=== PATIENT | female | born 1990 | race Caucasian/White ===

== ENCOUNTER 2025-01-26 21:55 | Emergency (ER) | payer BC ==
[~2025-01-26] VITALS: Ht 160 cm; Wt 124.9 kg
--- NOTE | 2025-01-26 22:09 | ELECTROCARDIOGRAPH REPORT ---
[facility] Test Date: 2025-01-26 Test Time: 22:06:43 Pat Name: HARSHAL LEONARDO Department: EMERGENCY ROOM Patient ID: [id number] Room: Gender: F [employer] Sewer: KHOA : 1990 Requested By: CASSANDRA SCHULER Order Number: [id number] Reading MD: Dr. Cassandra Schuler Measurements Intervals [place] Rate: 50 P: 27 NV: 147 QRS: 24 QRSD: 94 T: 1 QT: 432 QTc: 394 Interpretive Statements Sinus bradycardia Electronically Signed On 01-26-2025 23:30:[address] Cassandra Schuler Please click the below link to view image of tracing.
[2025-01-26 22:10] LABS: MEAN PLATELET VOLUME 9.5 FL (7.4-10.4); RED CELL DISTRIBUTION WIDTH 12.9 % (11.5-14.5)
[2025-01-26 22:12] VITALS: TEMP 98.5
[2025-01-26 22:34] LABS: CREATININE 0.77 MG/DL (0.40-0.90); PRO BRAIN NATRIURETIC PEPTIDE 71 PG/ML (0-125); TOTAL CARBON DIOXIDE 28.3 MMOL/L (24-32); eCRCL 86 ML/MIN; eGFR 86 ML/MIN
--- NOTE | 2025-01-26 22:39 | RADIOLOGY REPORT ---
CHEST RADIOGRAPH Indication: CP Technique: Single frontal view of the chest was obtained Comparison: None FINDINGS: Lines and Tubes: None Lungs: Mild pulmonary vascular congestion. No focal consolidation. Pleura: No effusion. No pneumothorax. Cardiomediastinal contours: Unremarkable Bones: No acute osseous abnormality. IMPRESSION: 1. Mild pulmonary vascular congestion. No focal consolidation.
--- NOTE | 2025-01-26 23:08 | Physician Documentation ---
History of Present Illness ~ Chief Complaint: Dizziness Stated Complaint: CHEST PAIN Time Seen by MD: 22:40 OK to notify your PCP?: Yes Source: patient, RN/MD, RN notes reviewed, old records Mode of Arrival: POV Exam Limitations: no limitations HPI 34 year old female seen in bed 03 presents to the emergency department for complaints of dizziness that has been present for three weeks. She states that her dizziness is intermittent but has been worsening for the past two days. Which began after she has a severe panic attack of which she has been taking propranolol for. Additionally she complains of heart pain that she states feels like a tightness in her chest. She state sthat the pain is non radiationg and she describes it as a heavy, tight, and stabbing pain. She has an ecchocardiogram scheduled six days from now. Medication Reconciliation Allergies: Coded Allergies: No Known Allergies (Unverified , 01/26/25) Scheduled Meclizine HCl (Meclizine HCl), 1 TAB PO Q12H Past Medical History Past Medical History: Chronic Back Pain, Anxiety, Bipolar, Depression Past Surgical History: cholecystectomy, orthopedic surgeries, tonsillectomy Smoking Status: Current every day smoker Alcohol Use: Rarely Drug Use: none Review of Systems All Other Systems at this time: Reviewed and Negative ROS As stated above in the HPI, otherwise all systems are reviewed and negative. Physical Exam Vital Signs: RN Vital Signs have been reviewed: Yes, Temperature: 98.5, Source: Oral, Heart Rate: 60, Respiratory Rate: 18, BP: 169/85, Pulse Oximetry: 98, Weight: 124.900 Oxygen Flow Rate: 0 Pulse Oximetry Reflects: adequate oxygenation Physical Exam General: The patient is well developed, well nourished, nontoxic appearing and is in no acute distress. Skin: [place], warm and dry with no rashes. HEENT: Head was normocephalic and atraumatic. Eyes - pupils equal, round, reactive to light and accommodation. Extraocular movements were intact. Conjunctivae were nonicteric. Ears - bilateral tympanic membranes were normal. The mouth and oropharynx were clear with moist mucous membranes. There were no pharyngeal exudates or erythema. Neck: Supple and nontender. There was no jugular venous distention, lymphadenopathy, thyromegaly or masses. Chest: Substernal chest pain. Clear to auscultation bilaterally without wheezes, rales or rhonchi. No accessory muscle use. No dullness to percussion. Heart: Rate regular and rhythmic. S1, S2. No murmurs. Palpation of the chest wall was normal. No rubs or thrills. Abdomen: Soft, nontender and nondistended. Positive bowel sounds. No guarding or rebound. No hepatosplenomegaly or palpable masses. Extremities: No cyanosis, clubbing or edema. The patient moves all extremities. Pulses were equal and symmetric. Neurologic: Nystagmus. Cranial nerves II-XII were intact. Sensation was intact to light touch throughout. Motor strength was 5/5 in all four extremities. Deep tendon reflexes were intact in both upper and lower extremities. Psychologic: The patient was oriented to person, place and time. The patient demonstrated appropriate judgement and insight. Progress Results/Orders Reviewed/noted all lab results: Yes Results/Orders Orders - CASSANDRA DRUMMOND MD Chest,Single View (01/26/25 22:21) Monitor (01/26/25 22:02) Saline Lock (01/26/25 22:02) Oxygen (01/26/25 22:02) Electrocardiogram (01/26/25 22:02) Hs Troponin I W Calculations (01/27/25 01:02) Echocardiogram (01/27/25 00:39) Completed Orders - CASSANDRA DRUMMOND MD Chest,Single View (01/26/25 22:21) Cbc/Diff (01/26/25 22:02) BMP (01/26/25 22:02) PBNP (01/26/25 22:02) Electrocardiogram (01/26/25 22:02) Hs Troponin I W Calculations (01/26/25 22:02) Hs Troponin I W Calculations (01/27/25 00:02) Drug Screen, Urine (01/27/25 00:18) Ethanol (01/26/25 22:03) Lipase (01/26/25 22:03) Liver Panel (01/26/25 22:03) MG (01/26/25 22:03) ESR (01/27/25 00:38) C-Reactive Protein (01/27/25 00:38) Ua W/Microscopic, Cult If Ind (01/27/25 00:46) Vital Signs 7/01/26/25 01/26/25 01/27/25 22:12 23:00 23:09 00:12 Temp 98.5 Pulse 60 60 48 Resp 18 20 16 B/P (MAP) 169/85 141/73 (95) 125/66 (85) Pulse Ox 98 99 98 O2 Flow Rate 0 Laboratory Tests Test 01/26/25 22:03 01/27/25 00:16 01/27/25 00:46 White Blood Count 13.0 H Red Blood Count 4.39 Hemoglobin 13.5 Hematocrit 39.1 Mean Corpuscular Volume 89.0 Mean Corpuscular Hemoglobin 30.7 Mean Corpuscular Hemoglobin Concent 34.5 Red Cell Distribution Width 12.9 Platelet Count 289 Mean Platelet Volume 9.5 Neutrophils (%) (Auto) 59.3 Lymphocytes (%) (Auto) 32.7 Monocytes (%) (Auto) 6.4 Eosinophils (%) (Auto) 1.3 Basophils (%) (Auto) 0.3 Neutrophils # (Auto) 7.7 Lymphocytes # (Auto) 4.3 Monocytes # (Auto) 0.8 Eosinophils # (Auto) 0.2 Basophils # (Auto) 0.0 CBC Comment Erythrocyte Sedimentation Rate 10 Sodium Level 141 Potassium Level 3.5 Chloride Level 106 Carbon Dioxide Level 28.3 Anion Gap 7 L Blood Urea Nitrogen 8 Creatinine 0.77 Estimated GFR/1.73 m2 86 BUN/Creatinine Ratio 10.4 Glucose Level 103 Calcium Level 8.9 Magnesium Level 2.3 Total Bilirubin 0.6 Direct Bilirubin 0.1 Aspartate Amino Transf (AST/SGOT) 24 Alanine Aminotransferase (ALT/SGPT) 39 Alkaline Phosphatase 76 Troponin I High Sensitivity 4 5 Pro-B-Type Natriuretic Peptide 71 Total Protein 7.6 Albumin 4.0 Globulin 3.6 Albumin/Globulin Ratio 1.1 Lipase 34 Chemistry Comments Ethyl Alcohol Level < 10 Troponin I High Sens Percent Delta 25 Troponin I Hi Sens Absolute Change 1 C-Reactive Protein 0.59 H Urine Specimen Description Non-specified Urine Color Yellow Urine Clarity Clear Urine pH 6.0 Urine Specific [place] 1.010 Urine Protein Negative Urine Glucose (UA) Negative Urine Ketones 15 H Urine Occult Blood Trace-intact Urine Nitrite Negative Urine Bilirubin Negative Urine Urobilinogen 0.2 Urine Leukocyte Esterase Negative Urine RBC 0-2 Urine WBC 0-4 Urine Squamous Epithelial Cells Moderate Urine Uric Acid Crystals Few Urine Bacteria Few Urine Culture Indicated Not ind Volume Urine Centrifuged 10 ml Urine Comment Urine Opiates Screen Negative Urine Methadone Screen Negative Urine Fentanyl Screen Negative Urine Barbiturates Screen Negative Urine Phencyclidine Screen Negative Urine Amphetamines Screen Negative Urine Benzodiazepines Screen Negative Urine Cocaine Screen Negative Urine Cannabinoids Screen Negative Drug Screen Comment Re-Evaluation Re-Evaluation : Re-Evaluation: Improved Progress Patient was seen and examined patient was given reassurance. The patient was found to have symptoms like near syncope chest pressure there was some early re polarization on EKG and with the patient complaining of chest pressure at a young age the thought of pericarditis was also considered. Patient states she is supposed to have an echocardiogram as well. She has been having symptoms for awhile. Patient is quite bradycardic her last beta alissa dose was 15 hours ago. I considered giving her some glucagon but she seemed to be tolerating her vital signs quite well. However in triage she was diaphoretic and almost had a near syncopal episode. Patient's laboratory work was obtained sed rates within normal limits CBC within normal limits with a borderline leukocytosis of 13.0. Chemistry LFTs cardiac enzymes all within normal limits except slight elevation of C-reactive protein at 0.59. Patient's urinalysis was within normal limits tox screen and alcohol were also within normal limits. The initial plan was to admit the patient however the patient was refusing admission. Patient will hold beta blockers and returned to the ER if any symptoms worsens or she has any other complaints. Continuous monitoring and evaluation advisor interpretation shows sinus bradycardia heart rate 40s, abnormal, my interpretation. Pulse oximetry monitor interpretation shows normal oxygenation at 98% room air, normal, my interpretation. EKG/XRAY/CT/US/VASC/MRI EKG : Additional Comment [facility] Test Date: 2025-01-26 Test Time: 22:06:43 Pat Name: HARSHAL LEONARDO Department: EMERGENCY ROOM Room: Gender: F [employer] Up: KHOA : 1990 Requested By: CASSANDRA DRUMMOND Order Number: [id number] [place] MD: Dr. Cassandra Drummond Measurements Intervals [place] Rate: 50 P: 27 CT: 147 QRS: 24 QRSD: 94 T: 1 QT: 432 QTc: 394 Interpretive Statements Sinus bradycardia Electronically Signed On 01-26-2025 23:30:[address] Cassandra Drummond Please click the below link to view image of tracing. EKG Date and Time:01/26/252205 Electronically Signed by: CASSANDRA DRUMMOND MD Date and Time: 01/26/25 233 Chest X-Ray : Additional Comments CHEST RADIOGRAPH Indication: CP Technique: Single frontal view of the chest was obtained Comparison: None FINDINGS: Lines and Tubes: None Lungs: Mild pulmonary vascular congestion. No focal consolidation. Pleura: No effusion. No pneumothorax. Cardiomediastinal contours: Unremarkable Bones: No acute osseous abnormality. IMPRESSION: 1. Mild pulmonary vascular congestion. No focal consolidation. Electronically Signed by:ROLLY FREGOSO MD Date & Time: 01/26/252235 Heart Score: Heart Score Response (Comments) Value History Slightly Suspicious 0 EKG Repolarization Disturb 1 Age <45 0 Risk Factors 1 or 2 risk factors 1 Troponin Normal limit 0 Total 2 Medical Decision Making Additional info obtained from: old records Differential Dx:Considerations: Include: anemia, CVA, dehydration, dysrhythmia, electrolyte imbalance, encephalopathy, hypoglycemia, hypotension, hypovolemia, labyrinthitis, Meniere's disease, myocardial infarction, pulmonary embolus, renal failure, respiratory failure, TIA, VBI, vertigo central, vertigo peripheral, vestibular neuronitis, other Departure Time of Disposition: 00:59 Disposition: 01 HOME / SELF CARE / HOMELESS Impression: Primary Impression: Bradycardia Additional Impressions: Chest pain Qualified Codes: R07.9 - Chest pain, unspecified Dizziness Condition: Fair Discharge Instructions: Dizziness Referrals: NO PRIMARY CARE PROVIDER (PCP) Prescriptions Meclizine HCl (Meclizine HCl) 12.5 Mg Tablet 1 TAB PO Q12H for dizziness for 10 Days, #20 TAB 0 Refills Prov: CASSANDRA DRUMMOND MD 01/27/25 Education Educated: Patient, Family Educated regarding: diagnosis, treatment, prognosis, need for follow up Additional Comment Additional Comment PATIENT WAS OFFERED ADMISSION ECHOCARDIOGRAM AND CARDIAC WORKUP WELL SYMPTOMATIC BRADYCARDIA AND DIZZINESS. DESPITE MY EFFORTS PATIENT REFUSED ADMISSION Signature Scribe Signature: Scribed for Cassandra Drummond MD by Paras Cleveland . 01/27/25 00:39 Attestation: The note accurately reflects work and decisions made by me.Cassandra Drummond MD 01/26/25 23:08 CASSANDRA DRUMMOND MD Jan 26, 2025 23:08 PARAS JOHNSON Jan 27, 2025 00:39
[2025-01-27 00:12] VITALS: BP 125/66; PULSE 48; RESP 16; O2SAT 98
[2025-01-27 00:44] LABS: ETHANOL < 10 MG/DL (<10)
[2025-01-27 01:12] LABS: LEUKOCYTE ESTERASE ,URINE NEGATIVE (Neg); NITRITES, URINE NEGATIVE (Neg); OCCULT BLOOD,URINE TRACE-INTACT (Neg)
[2025-01-27] MEDS ORDERED: MECL-226 PO (01:12)
[2025-01-27 01:13] LABS: UA COLLECTION TYPE NON-SPECIFIED
[2025-01-27 01:17] LABS: SQUAMOUS EPITHELIAL CELL,UR MODERATE /LPF (FEW); URIC ACID CRYSTALS FEW /HPF (NEGATIVE)
[2025-01-27 01:29] LABS: URINE AMPHETAMINE SCREEN NEGATIVE (Neg); URINE BARBITUATE SCREEN NEGATIVE (Neg); URINE BENZODIAZEPINES SCREEN NEGATIVE (Neg); URINE CANNABINOID SCREEN NEGATIVE (Neg); URINE COCAINE SCREEN NEGATIVE (Neg); URINE METHADONE SCREEN NEGATIVE (Neg); URINE OPIATE SCREEN NEGATIVE (Neg); URINE PHENCYCLIDINE SCREEN NEGATIVE (Neg)
== END 2025-01-27 01:28 | disposition home or self-care (01) ==
LOC: ER 21:57
DX: R00.1 Bradycardia, unspecified (principal); R07.89 Other chest pain; R42 Dizziness and giddiness; F41.0 Panic disorder [episodic paroxysmal anxiety]; F41.9 Anxiety disorder, unspecified; F31.9 Bipolar disorder, unspecified; F17.200 Nicotine dependence, unspecified, uncomplicated; Z90.49 Acquired absence of other specified parts of digestive tract; Z79.899 Other long term (current) drug therapy
CPT/HCPCS: 36415; 71045; 80048; 80076; 80305; 80320; 81001; 83690; 83735; 83880; 84484; 85025; 85651; 86140; 93005; 99285